=== PATIENT | female | born 1990 | race Caucasian/White ===

== ENCOUNTER 2019-07-04 20:00 | Emergency (ER) | payer SELFPAY ==
[2019-07-04 20:02] VITALS: BP 124/70; PULSE 108; RESP 18; TEMP 37.1; O2SAT 100; BMI 23.3
[2019-07-04 20:29] LABS: Bacteria 0 SEEN /hpf (None Seen); Mucous, Urine 0 SEEN /hpf (<or=2+)
[2019-07-04 20:32] LABS: Color, Urine Yellow (Yellow); Glucose, Dipstick Normal (Normal); Ketone-Dipstick Negative (Negative); Leukocyte Esterase-Dipstick 25 /ul (Negative); Nitrite-Dipstick Negative (Negative); Occult Blood-Urine 150 /ul (Negative); Protein-Dipstick Negative (Negative); Urine Bilirubin Dipstick Negative (Negative); Urine Clarity Sl. Cloudy (Clear); Urine Urobilinogen Normal (Normal)
[2019-07-04 20:38] LABS: Red Blood Cells-Urine 5-10 SEEN /hpf (0-5); Squamous Epithelial Cells - UA 5-10 SEEN /hpf (5-10); White Blood Cells 0-5 SEEN /hpf (0-5)
[2019-07-04 20:46] LABS: Absolute Lymphocyte Count 0.49 X10^3/uL (0.83-4.51); Absolute Neutrophil Count 11.1 X10^3/uL (2.0-7.7); Basophil# 0.06 X10^3/uL; Basophil% 0.5 % (0-1); Eosinophil# 0.13 X10^3/uL; Hematocrit 46.7 % (37-47); Hemoglobin 15.3 g/dL (12.0-15.0); Lymphocyte # 0.49 X10^3/ul (4.0); Lymphocyte % 3.9 % (19-41); Mean Corp Hgb Conc 32.8 g/dL (32-36); Mean Corpuscular Hgb 29.4 pg (27.0-32.0); Mean Corpuscular Volume 89.8 fL (81-99); Mean Platelet Vol. 9.4 fl (6.2-12.0); Monocyte# 0.84 X10^3/uL; Monocyte% 6.6 % (0-10); NRBC Flagged by Analyzer 0 % (0-5); Neutrophil # 11.09 X10^3/uL (2.7-7.7); Neutrophil % 87.4 % (47-70); POSITIVE DIFFERENTIAL YES; Platelet Count 326 K/mm3 (150-450); RBC Distribution Width CV 12.7 % (11.6-14.6); RBC Distribution Width SD 42.2 fl (35.1-43.9); White Blood Count 12.7 K/mm3 (4.4-11.0)
[2019-07-04 20:53] LABS: Internal QC Validated? YES +Cl - CLEAR BKGD; Pregnancy, Serum, hCG Quali. NEGATIVE Negative
[2019-07-04 20:55] LABS: Anion Gap 5 (5-15); BUN 9 mg/dL (7-18); Calcium,Total 9.3 mg/dL (8.5-10.1); Chloride 105 mmol/L (98-107); Creatinine, Serum 0.82 mg/dL (0.55-1.02); EST Glomerular Filtration Rate 88 mL/min (>60); Est Glom Filt Rate - Afr Amer 106 mL/min (>60); Estimated Creatinine Clearance 113.14 ml/min; Glucose 105 mg/dL (74-106); Potassium 4.2 mmol/L (3.5-5.1); Sodium Level 138 mmol/L (136-145)
[2019-07-04 20:59] LABS: Differential Indicated SCAN CRITERIA MET
--- NOTE | 2019-07-04 21:17 | CT_ITS ---
STUDY: CT ABDOMEN AND PELVIS WITH CONTRAST REASON FOR EXAM: Female, 29 years old. RLQ PAIN, RADIATION DOSAGE (If Supplied By Facility): CTDIvol = ( 6.04 ) mGy, DLP = ( 430.43 ) mGycm TECHNIQUE: Transaxial images were obtained from the dome of the diaphragm to the symphysis pubis without oral contrast. IV 55mL Isovue-300 was administered. Sagittal and coronal images were reconstructed. Individualized dose optimization techniques were used for this CT. COMPARISON: None. FINDINGS: The visualized lung bases are unremarkable. The visualized portions of the heart are within normal limits. Normal liver. Normal gallbladder and extrahepatic biliary system. Normal spleen. Normal pancreas. Normal bilateral adrenal glands. Right kidney has several tiny nonobstructing renal stones, and is otherwise normal. Normal left kidney. Evaluation of the GI tract is limited by absence of oral contrast. Cannot exclude stomach wall thickening. No dilated loops of bowel or evidence for obstruction. Cannot exclude segmental thickening of the [place] of the small or large bowel. Cannot exclude enteritis or colitis. Fluid is seen throughout the large bowel consistent with nonspecific colitis/diarrheal disorders. Appendix within normal limits. Normal abdominal aorta. Normal inferior vena cava. Normal retroperitoneum. Normal urinary bladder. Normal visualized uterus. Normal abdominal wall. Normal osseous structures. CT/Abdomen/Pelvis W IV Cont ONLY IMPRESSION: Several tiny nonobstructing right renal stones. Evaluation of the GI tract is limited by the absence of oral contrast. Fluid seen throughout the large bowel suggest nonspecific colitis/diarrheal disorders. Electronically Signed: Jatin Santiago MD at 21:53 EST , Service support ,
[2019-07-04 21:20] LABS: Differential Comment SCANNED
--- NOTE | 2019-07-04 21:21 | ED.VIS.GEN ---
History of Present Illness Chief Complaint: Abd Pain Informant: Patient Onset: Today Narrative: Patient presents the emergency department with right lower quadrant abdominal pain. Patient tells me that on Thursday evening she began to feel pressure in her lower abdomen. It was rather crampy and since she was on her. She felt it was related to that. She is been having normal bowel movements. On Thursday she woke up felt fine had normal bowel movements and ate her normal food. Today she developed right lower quadrant pain that seems to move up to the right upper quadrant epigastrium. She thought maybe she was constipated so she took some MiraLAX and later this evening took a enema. She has had several bouts of vomiting today now. No fever. Past Medical History - Allergies and Home Meds Allergies/Adverse Reactions: Allergies No Known Allergies Allergy (Verified 07/04/19 20:01) Primary Care Physician: Care Physician,No Primary [Primary Care Provider] - Smoking Status: Current every day smoker Review of Systems General: Denies: Chills, Fever, Sweats Eyes: Denies: Visual changes - bilaterally, Diplopia ENT: Denies: Rhinorrhea, Sore throat Cardiovascular: Denies: Chest pain, Palpitations Respiratory: Denies: Dyspnea, Cough, Dyspnea on exertion Gastrointestinal: Reports: Abdominal pain, Nausea, Vomiting, Diarrhea. Denies: Melena, Hematochezia Genitourinary: Denies: Dysuria, Hematuria, Frequency Musculoskeletal: Denies: Back pain, Extremity Pain Skin: Denies: Rash, Wounds Neurological: Denies: Headache, Weakness, Numbness Physical Exam Vital Signs/Narrative: Vital Signs Temp Pulse Resp BP Pulse Ox 07/04/19 20:02 98.8 F 108 H 18 124/70 H 100 Inital Vital Signs reviewed: Yes General: Well nourished, Well developed, No Acute Distress Head: Normocephalic, Atraumatic Eyes: Perrl, EOMI ENT: Moist mucous membranes, No rhinorrhea Neck: Supple, Nontender Cardiovascular: Regular rate, Regular rhythm, No murmurs Respiratory: No distress, CTA bilaterally, Chest nontender Abdomen: Soft, Nondistended, Normal bowel sounds, Tender - RLQ, Guarding Back: Nontender, Normal Inspection Extremities: Nontender, No edema Skin: Normal color, No rash Neurological: Alert, Oriented x3, Cranial nerves II-XII grossly intact, Normal Strength, Normal Sensation Psychological: Normal affect, Normal Mood Diagnostic/Tx/Re-eval - Medical Decision Making White count is elevated at 12.7. She continues to have right lower quadrant pain. Therefore CT down pelvis was ordered. Normal appendix. There is a large amount of fluid noted the small intestine and the large intestine. Is most likely a gastroenteritis complicated by the fact that the patient took MiraLAX and gave herself an enema. I would anticipate her having diarrhea. I will write for Zofran for nausea and vomiting return if worsening or concerns ED Disposition - Plan for ED Patient: Disposition: Home or Assisted Living Diagnosis: Gastroenteritis Instructions: GASTROENTERITIS, Viral (6y-Adult) Prescriptions: Ondansetron [Zofran Odt] 4 mg PO Q6H PRN PRN #20 tab PRN Reason: Nausea Prescription Printed Referrals: Zuhair Farah III, MD [STAFF PHYSICIAN] - As Needed
[2019-07-04 22:01] VITALS: BP 109/76; PULSE 84; RESP 16; O2SAT 98
== END 2019-07-04 23:00 | disposition home or self-care (01) ==
PROVIDERS: Emergency Provider Emergency Medicine
DX: K52.9 Noninfective gastroenteritis and colitis, unspecified (principal); F17.200 Nicotine dependence, unspecified, uncomplicated
CPT/HCPCS: 74177; 80048; 81001; 84703; 85025; 99283; Q9967; A4216